=== PATIENT | male | born 1970 | race Caucasian/White ===

== ENCOUNTER 2019-07-10 12:08 | Emergency (ER) | payer OTHER ==
--- OUTSIDE RECORDS SUMMARY | 2019-07-10 12:35 | XMS REPORT | Continuity of Care Document ---
:1970 External Reference #:[id number] Author Name Lucas Rodriguez M.D. 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 108(90Base) Hours as Needed mcg/Act Aerosol For Shortness Of Breath / Wheezing Combivent Respimat 1 puffs four 4gm J44.9 Lucas Rodriguez 04/29/2019 times a day as M., M.D. 20-100mcg/Act needed Aerosol Symbicort inhale one puff 30.6units J44.9 Lucas Rodriguez 04/29/2019 by mouth twice a M., M.D. 80-4.5mcg/Act day Aerosol Levalbuterol A1 puff inhaled 15gm J44.9 Lucas Rodriguez 04/29/2019 Tartrate by mouth every 4 M., M.D. 45mcg/Act hours as needed Aerosol sob or wheezing Azithromycin 1 tab by mouth 10tabs J20.9 Lucas Rodriguez 04/29/2019 500mg every day x 10 M., M.D. Tablets days Ibuprofen 1 by mouth three 90tabs M15.9 [facility] 03/09/2019 800mg times a day as M., M.D. Tablets needed Nortriptyline HCL 1 cap by mouth at 30caps G47.00 [facility] 02/09/2019 bedtime M., M.D. 75mg Capsules Probiotic 1 tab by mouth 3x 30caps [facility] 01/26/2019 Acidophilus daily M., M.D. Capsules Oxycodone HCL 1 tab by mouth 90tabs [facility] 01/14/2019 10mg three times a day M., M.D. Tablets as needed for break through pain 7-9 only. Mucinex 1 tab by mouth 30tabs J18.0 [facility] 01/07/2019 600mg Tablets twice a day M., M.D. ER 12HR Montelukast Sodium 1 by mouth every 90tabs J01.40 [facility] 01/07/2019 day M., M.D. 10mg Tablets Claritin 1 by mouth every 30tabs J01.40 [facility] 11/09/2018 10mg Tablets day M., M.D. Benadryl Allergy 1-2 tab by mouth 60tabs J01.40 [facility] 11/09/2018 25mg every night at M., M.D. Tablets bedtime as needed congestion Atorvastatin Calcium take 1 tablet 90tabs E78.2 [facility] 01/15/2018 every night M., M.D. 40mg Tablets Meloxicam 1 by mouth every 90tabs M25.552 [facility] 10/15/2017 15mg day-WC Case By MYvonne M.D. Tablets Sos Ramipril take one capsule 90caps E11.65 [facility] 08/22/2017 2.5mg by mouth every M., M.D. Capsules day Pioglitazone HCL Take One Tablet 30tabs E11.65 [facility] 12/13/2016 30mg By Mouth Every M., M.D. Tablets Day Glimepiride Take One Tablet 30tabs E11.65 [facility] 12/13/2016 4mg By Mouth Every M., M.D. Tablets Day Freestyle Lite Blood fs [facility] and at 1units E11.65 [facility] 12/11/2016 Glucose Monitoring bedtime as needed M.Melinda System dx: e11.65 Device Freestyle Lancets fs every before 100units E11.65 [facility] 12/11/2016 meals and at M.Raul.D. [facility] [place] needed Freestyle Lite Test test four times a 100units E11.65 [facility] 2016 day before meals M.Melinda Strip and bedtime Aspirin Ec Take One Tablet Unknown 325mg By Mouth Every Tablets DR Day History Medications Keflex 1 by mouth 30caps H70.002 [facility] 04/09/2019 - 500mg Capsules three times a M., M.D. 04/18/2019 day Levofloxacin 1 by mouth 14tabs [facility] 01/26/2019 - 750mg every day M., M.D. 02/08/2019 Tablets Cephalexin 1 tab by mouth 30tabs [facility] 01/26/2019 - 500mg Tablets three times a M., M.D. 02/08/2019 day Amoxicillin/Clavulanat 1 tab by mouth 30tabs J01.40 [facility] 2018 - e Potassium twice a day M., M.D. 01/25/2019 875-125mg Tablets Azithromycin 1 tab by mouth 10tabs J18.0 [facility] 01/07/2019 - 500mg every day x 10 M., M.D. 01/25/2019 Tablets days Medications Administered in Office Medication SIG Qnty Indications Ordering Provider Date Rocephin 250 Lucas Henderson N.P. 01/26/2019 Injection Immunizations CPT Code Status Date Vaccine Lot # [id number] Refused 09/08/2013 Flu Vaccine Vital Signs Date Vital Result Comment 2019 4:08pm BP Systolic 140 mmHg BP Diastolic 70 mmHg Height 72 inches 6'0" Weight 272.00 lb BMI (Body Mass Index) 36.9 kg/m2 Heart Rate 78 /min Respiratory Rate 16 /min 04/29/2019 3:29pm BP Systolic 134 mmHg BP Diastolic 66 mmHg Height 72 inches 6'0" Weight 281.00 lb BMI (Body Mass Index) 38.1 kg/m2 Heart Rate 87 /min Respiratory Rate 16 /min Results Description No Information Available Procedures Date Code Description Status 04/29/2019 43212 Spirometry Completed 03/22/2019 39480 Visual Screening Test Completed 03/22/2019 48497 EKG Completed 03/22/2019 75142 Audiometry, Bekesy, Screening Completed 01/26/2019 31815 Injection DX/Therapeutic/Prophy Completed 01/14/2019 94442 I & D Abscess Simple/Single Incl. Furuncle/Carbuncle/Cyst Completed 01/07/2019 99562 Spirometry Completed 01/07/2019 25957 Tympanometry Completed Medical Devices Description No Information Available Encounters Type Date Location Provider Dx Diagnosis Office Visit 2019 Lucas Johnson, E11.65 Type 2 diabetes 4:15p M.D. mellitus with hyperglycemia M15.9 Polyosteoarthritis, unspecified J44.9 Chronic obstructive pulmonary disease, unspecified E66.01 Morbid (severe) obesity due to excess calories F17.200 Nicotine dependence, unspecified, uncomplicated L20.9 Atopic dermatitis, unspecified J30.9 Allergic rhinitis, unspecified H90.6 Mixed conductive and sensorineural hearing loss, bilateral H53.30 Unspecified disorder of binocular vision E78.2 Mixed hyperlipidemia M25.552 Pain in left hip K86.1 Other chronic pancreatitis Z90.49 Acquired absence of other specified parts of digestive tract E55.9 Vitamin D deficiency, unspecified G47.00 Insomnia, unspecified R06.83 Snoring Office Visit 04/29/2019 3:45p Millie Henderson, E11.65 Type 2 diabetes N.P. mellitus with hyperglycemia M15.9 Polyosteoarthritis, unspecified J44.9 Chronic obstructive pulmonary disease, unspecified E66.01 Morbid (severe) obesity due to excess calories F17.200 Nicotine dependence, unspecified, uncomplicated R06.02 Shortness of breath L20.9 Atopic dermatitis, unspecified J30.9 Allergic rhinitis, unspecified H90.6 Mixed conductive and sensorineural hearing loss, bilateral H53.30 Unspecified disorder of binocular vision E78.2 Mixed hyperlipidemia M25.552 Pain in left hip K86.1 Other chronic pancreatitis Z90.49 Acquired absence of other specified parts of digestive tract E55.9 Vitamin D deficiency, unspecified G47.00 Insomnia, unspecified R06.83 Snoring H70.002 Acute mastoiditis without complications, left ear J20.9 Acute bronchitis, unspecified Office Visit 04/09/2019 4:00p Lucas Johnson, E11.65 Type 2 diabetes mellitus M.D. with hyperglycemia M15.9 Polyosteoarthritis, unspecified J44.9 Chronic obstructive pulmonary disease, unspecified E66.01 Morbid (severe) obesity due to excess calories F17.200 Nicotine dependence, unspecified, uncomplicated L20.9 Atopic dermatitis, unspecified J30.9 Allergic rhinitis, unspecified H90.6 Mixed conductive and sensorineural hearing loss, bilateral H53.30 Unspecified disorder of binocular vision E78.2 Mixed hyperlipidemia M25.552 Pain in left hip K86.1 Other chronic pancreatitis Z90.49 Acquired absence of other specified parts of digestive tract E55.9 Vitamin D deficiency, unspecified G47.00 Insomnia, unspecified R06.83 Snoring H70.002 Acute mastoiditis without complications, left ear Office Visit 03/22/2019 9:00a Lucas Johnson, E11.65 Type 2 diabetes mellitus M.D. with hyperglycemia M15.9 Polyosteoarthritis, unspecified J44.9 Chronic obstructive pulmonary disease, unspecified E66.01 Morbid (severe) obesity due to excess calories F17.200 Nicotine dependence, unspecified, uncomplicated L20.9 Atopic dermatitis, unspecified J30.9 Allergic rhinitis, unspecified H90.6 Mixed conductive and sensorineural hearing loss, bilateral H53.30 Unspecified disorder of binocular vision E78.2 Mixed hyperlipidemia M25.552 Pain in left hip K86.1 Other chronic pancreatitis Z90.49 Acquired absence of other specified parts of digestive tract E55.9 Vitamin D deficiency, unspecified G47.00 Insomnia, unspecified R06.83 Snoring L02.214 Cutaneous abscess of groin Z00.01 Encounter for general adult medical exam w abnormal findings Office Visit 02/09/2019 8:45a Millie Henderson, E11.65 Type 2 diabetes N.P. mellitus with hyperglycemia M15.9 Polyosteoarthritis, unspecified J44.9 Chronic obstructive pulmonary disease, unspecified E66.01 Morbid (severe) obesity due to excess calories F17.200 Nicotine dependence, unspecified, uncomplicated L20.9 Atopic dermatitis, unspecified J30.9 Allergic rhinitis, unspecified H90.6 Mixed conductive and sensorineural hearing loss, bilateral H53.30 Unspecified disorder of binocular vision E78.2 Mixed hyperlipidemia M54.5 Low back pain M25.552 Pain in left hip K86.1 Other chronic pancreatitis Z90.49 Acquired absence of other specified parts of digestive tract J20.9 Acute bronchitis, unspecified J01.40 Acute pansinusitis, unspecified H66.93 Otitis media, unspecified, bilateral R06.02 Shortness of breath R05 Cough R09.81 Nasal congestion E55.9 Vitamin D deficiency, unspecified G47.00 Insomnia, unspecified R06.83 Snoring J02.9 Acute pharyngitis, unspecified J18.0 Bronchopneumonia, unspecified organism L02.214 Cutaneous abscess of groin Office Visit 01/26/2019 1:00p Millie Henderson, E11.65 Type 2 diabetes N.P. mellitus with hyperglycemia M15.9 Polyosteoarthritis, unspecified J44.9 Chronic obstructive pulmonary disease, unspecified E66.01 Morbid (severe) obesity due to excess calories F17.200 Nicotine dependence, unspecified, uncomplicated L20.9 Atopic dermatitis, unspecified J30.9 Allergic rhinitis, unspecified H90.6 Mixed conductive and sensorineural hearing loss, bilateral H53.30 Unspecified disorder of binocular vision E78.2 Mixed hyperlipidemia M54.5 Low back pain M25.552 Pain in left hip K86.1 Other chronic pancreatitis Z90.49 Acquired absence of other specified parts of digestive tract J20.9 Acute bronchitis, unspecified J01.40 Acute pansinusitis, unspecified H66.93 Otitis media, unspecified, bilateral R06.02 Shortness of breath R05 Cough R09.81 Nasal congestion E55.9 Vitamin D deficiency, unspecified G47.00 Insomnia, unspecified R06.83 Snoring J02.9 Acute pharyngitis, unspecified J18.0 Bronchopneumonia, unspecified organism L02.214 Cutaneous abscess of groin Office Visit 01/21/2019 10:00a Millie Lucas Henderson, E11.65 Type 2 diabetes N.P. mellitus with hyperglycemia M15.9 Polyosteoarthritis, unspecified J44.9 Chronic obstructive pulmonary disease, unspecified E66.01 Morbid (severe) obesity due to excess calories F17.200 Nicotine dependence, unspecified, uncomplicated L20.9 Atopic dermatitis, unspecified J30.9 Allergic rhinitis, unspecified H90.6 Mixed conductive and sensorineural hearing loss, bilateral H53.30 Unspecified disorder of binocular vision E78.2 Mixed hyperlipidemia M54.5 Low back pain M25.552 Pain in left hip K86.1 Other chronic pancreatitis Z90.49 Acquired absence of other specified parts of digestive tract J20.9 Acute bronchitis, unspecified J01.40 Acute pansinusitis, unspecified H66.93 Otitis media, unspecified, bilateral R06.02 Shortness of breath R05 Cough R09.81 Nasal congestion E55.9 Vitamin D deficiency, unspecified G47.00 Insomnia, unspecified R06.83 Snoring J02.9 Acute pharyngitis, unspecified J18.0 Bronchopneumonia, unspecified organism L02.214 Cutaneous abscess of groin Office Visit 01/14/2019 8:45a Millie Henderson, E11.65 Type 2 diabetes N.P. mellitus with hyperglycemia M15.9 Polyosteoarthritis, unspecified J44.9 Chronic obstructive pulmonary disease, unspecified E66.01 Morbid (severe) obesity due to excess calories F17.200 Nicotine dependence, unspecified, uncomplicated L20.9 Atopic dermatitis, unspecified J30.9 Allergic rhinitis, unspecified H90.6 Mixed conductive and sensorineural hearing loss, bilateral H53.30 Unspecified disorder of binocular vision E78.2 Mixed hyperlipidemia M54.5 Low back pain M25.552 Pain in left hip K86.1 Other chronic pancreatitis Z90.49 Acquired absence of other specified parts of digestive tract J20.9 Acute bronchitis, unspecified J01.40 Acute pansinusitis, unspecified H66.93 Otitis media, unspecified, bilateral R06.02 Shortness of breath R05 Cough R09.81 Nasal congestion E55.9 Vitamin D deficiency, unspecified G47.00 Insomnia, unspecified R06.83 Snoring J02.9 Acute pharyngitis, unspecified J18.0 Bronchopneumonia, unspecified organism L02.214 Cutaneous abscess of groin Office Visit 01/07/2019 9:30a Millie Zavala Santiago, E11.65 Type 2 diabetes N.P. mellitus with hyperglycemia M15.9 Polyosteoarthritis, unspecified J44.9 Chronic obstructive pulmonary disease, unspecified E66.01 Morbid (severe) obesity due to excess calories F17.200 Nicotine dependence, unspecified, uncomplicated L20.9 Atopic dermatitis, unspecified J30.9 Allergic rhinitis, unspecified H90.6 Mixed conductive and sensorineural hearing loss, bilateral H53.30 Unspecified disorder of binocular vision E78.2 Mixed hyperlipidemia M54.5 Low back pain M25.552 Pain in left hip K86.1 Other chronic pancreatitis Z90.49 Acquired absence of other specified parts of digestive tract J20.9 Acute bronchitis, unspecified J01.40 Acute pansinusitis, unspecified H66.93 Otitis media, unspecified, bilateral R06.02 Shortness of breath R05 Cough R09.81 Nasal congestion E55.9 Vitamin D deficiency, unspecified G47.00 Insomnia, unspecified R06.83 Snoring J02.9 Acute pharyngitis, unspecified J18.0 Bronchopneumonia, unspecified organism Assessments Date Code Description Provider 2019 E11.65 Type 2 diabetes mellitus with hyperglycemia Lucas Rodriguez M.D. 2019 M15.9 Polyosteoarthritis, unspecified Lucas Rodriguez M.D. 2019 J44.9 Chronic obstructive pulmonary disease, Lucas Rodriguez M.D. unspecified 2019 E66.01 Morbid (severe) obesity due to excess Lucas Rodriguez M.D. calories 2019 F17.200 Nicotine dependence, unspecified, Lucas Rodrgiuez M.D. uncomplicated 2019 L20.9 Atopic dermatitis, unspecified Lucas Rodriguez M.D. 2019 J30.9 Allergic rhinitis, unspecified Lucas Rodriguez M.D. 2019 H90.6 Mixed conductive and sensorineural hearing Lucas Rodriguez M.D. loss, bilateral 2019 H53.30 Unspecified disorder of binocular vision Lucas Rodriguez M.D. 2019 E78.2 Mixed hyperlipidemia Lucas Rodriguez M.D. 2019 M25.552 Pain in left hip Lucas Rodriguez M.D. 2019 K86.1 Other chronic pancreatitis Lucas Rodriguez M.D. 2019 Z90.49 Acquired absence of other specified parts of Lucas Rodriguez M.D. digestive tract 2019 E55.9 Vitamin D deficiency, unspecified Lucas Rodriguez M.D. 2019 G47.00 Insomnia, unspecified Lucas Rodriguez M.D. 2019 R06.83 Snoring Lucas Rodriguez M.D. 04/29/2019 E11.65 Type 2 diabetes mellitus with hyperglycemia Lucas Henderson N.PYvonne 04/29/2019 M15.9 Polyosteoarthritis, unspecified Lucas Henderson N.P. 04/29/2019 J44.9 Chronic obstructive pulmonary disease, Lucas Henderson N.P. unspecified 04/29/2019 E66.01 Morbid (severe) obesity due to excess Lucas Henderson N.P. calories 04/29/2019 F17.200 Nicotine dependence, unspecified, Lucas Henderson N.P. uncomplicated 04/29/2019 R06.02 Shortness of breath Lucas Henderson N.P. 04/29/2019 L20.9 Atopic dermatitis, unspecified Lucas Henderson N.P. 04/29/2019 J30.9 Allergic rhinitis, unspecified Lucas Henderson N.P. 04/29/2019 H90.6 Mixed conductive and sensorineural hearing Lucas Henderson N.PYvonne loss, bilateral 04/29/2019 H53.30 Unspecified disorder of binocular vision Lucas Henderson N.P. 04/29/2019 E78.2 Mixed hyperlipidemia Lucas Henderson N.P. 04/29/2019 M25.552 Pain in left hip Lucas Henderson N.PYvonne 04/29/2019 K86.1 Other chronic pancreatitis Lucas Henderson, N.P. 04/29/2019 Z90.49 Acquired absence of other specified parts of Lucas Henderson N.PYvonne digestive tract 04/29/2019 E55.9 Vitamin D deficiency, unspecified Lucas Henderson N.P. 04/29/2019 G47.00 Insomnia, unspecified Lucas Henderson N.PYvonne 04/29/2019 R06.83 Snoring Lucas Henderson N.P. 04/29/2019 H70.002 Acute mastoiditis without complications, Lucas Henderson N.PYvonne left ear 04/29/2019 J20.9 Acute bronchitis, unspecified Lucas Henderson N.P. 04/09/2019 E11.65 Type 2 diabetes mellitus with hyperglycemia Lucas Rodriguez M.D. 04/09/2019 M15.9 Polyosteoarthritis, unspecified Lucas Rodriguez M.D. 04/09/2019 J44.9 Chronic obstructive pulmonary disease, Lucas Rodriguez M.D. unspecified 04/09/2019 E66.01 Morbid (severe) obesity due to excess Lucas Rodriguez M.D. calories 04/09/2019 F17.200 Nicotine dependence, unspecified, Lucas Rodriguez M.D. uncomplicated 04/09/2019 L20.9 Atopic dermatitis, unspecified Lucas Rodriguez M.D. 04/09/2019 J30.9 Allergic rhinitis, unspecified Lucas Rodriguez M.D. 04/09/2019 H90.6 Mixed conductive and sensorineural hearing Lucas Rodriguez M.D. loss, bilateral 04/09/2019 H53.30 Unspecified disorder of binocular vision Lucas Rodriguez M.D. 04/09/2019 E78.2 Mixed hyperlipidemia Lucas Rodriguez M.D. 04/09/2019 M25.552 Pain in left hip Lucas Rodriguez M.D. 04/09/2019 K86.1 Other chronic pancreatitis Lucas Rodriguez M.D. 04/09/2019 Z90.49 Acquired absence of other specified parts of Lucas Rodriguez M.D. digestive tract 04/09/2019 E55.9 Vitamin D deficiency, unspecified Lucas Rodriguez M.D. 04/09/2019 G47.00 Insomnia, unspecified Lucas Rodriguez M.D. 04/09/2019 R06.83 Snoring Lucas Rodriguez M.D. 04/09/2019 H70.002 Acute mastoiditis without complications, Lucas Rodriguez M.D. left ear 03/22/2019 E11.65 Type 2 diabetes mellitus with hyperglycemia Lucas Rodriguez M.D. 03/22/2019 M15.9 Polyosteoarthritis, unspecified Lucas Rodriguez M.D. 03/22/2019 J44.9 Chronic obstructive pulmonary disease, Lucas Rodriguez M.D. unspecified 03/22/2019 E66.01 Morbid (severe) obesity due to excess Lucas Rodriguez M.D. calories 03/22/2019 F17.200 Nicotine dependence, unspecified, Lucas Rodriguez M.D. uncomplicated 03/22/2019 L20.9 Atopic dermatitis, unspecified Lucas Rodriguez M.D. 03/22/2019 J30.9 Allergic rhinitis, unspecified Lucas Rodriguez M.D. 03/22/2019 H90.6 Mixed conductive and sensorineural hearing Lucas Rodriguez M.D. loss, bilateral 03/22/2019 H53.30 Unspecified disorder of binocular vision Lucas Rodriguez M.D. 03/22/2019 E78.2 Mixed hyperlipidemia Lucas Rodriguez M.D. 03/22/2019 M25.552 Pain in left hip Lucas Rodriguez M.D. 03/22/2019 K86.1 Other chronic pancreatitis Lucas Rodriguez M.D. 03/22/2019 Z90.49 Acquired absence of other specified parts of Lucas Rodriguez M.D. digestive tract 03/22/2019 E55.9 Vitamin D deficiency, unspecified Lucas Rodriguez M.D. 03/22/2019 G47.00 Insomnia, unspecified Lucas Rodriguez M.D. 03/22/2019 R06.83 Snoring Lucas Rodriguez M.D. 03/22/2019 L02.214 Cutaneous abscess of groin Lucas Rodriguez M.D. 03/22/2019 Z00.01 Encounter for general adult medical Lucas Rodriguez M.D. examination with abnorma 02/09/2019 E11.65 Type 2 diabetes mellitus with hyperglycemia Lucas Henderson N.PYvonne 02/09/2019 M15.9 Polyosteoarthritis, unspecified Luacs Henderson N.P. 02/09/2019 J44.9 Chronic obstructive pulmonary disease, Lucas Henderson N.P. unspecified 02/09/2019 E66.01 Morbid (severe) obesity due to excess Lucas Henderson, N.P. calories 02/09/2019 F17.200 Nicotine dependence, unspecified, Lucas Henderson N.P. uncomplicated 02/09/2019 L20.9 Atopic dermatitis, unspecified Lucas Henderson N.P. 02/09/2019 J30.9 Allergic rhinitis, unspecified Lucas Henderson N.P. 02/09/2019 H90.6 Mixed conductive and sensorineural hearing Lucas Henderson N.P. loss, bilateral 02/09/2019 H53.30 Unspecified disorder of binocular vision Lucas Henderson N.P. 02/09/2019 E78.2 Mixed hyperlipidemia Lucas Henderson N.P. 02/09/2019 M54.5 Low back pain Lucas Henderson N.P. 02/09/2019 M25.552 Pain in left hip Lucas Henderson N.P. 02/09/2019 K86.1 Other chronic pancreatitis Lucas Henderson N.P. 02/09/2019 Z90.49 Acquired absence of other specified parts of Lucas Henderson N.PYvonne digestive tract 02/09/2019 J20.9 Acute bronchitis, unspecified Lucas Henderson N.P. 02/09/2019 J01.40 Acute pansinusitis, unspecified Lucas Henderson, N.P. 02/09/2019 H66.93 Otitis media, unspecified, bilateral Lucas Henderson, N.P. 02/09/2019 R06.02 Shortness of breath Lucas Henderson, N.P. 02/09/2019 R05 Cough Lucas Henderson, N.P. 02/09/2019 R09.81 Nasal congestion Lucas Henderson, N.P. 02/09/2019 E55.9 Vitamin D deficiency, unspecified Lucas Henderson, N.P. 02/09/2019 G47.00 Insomnia, unspecified Lucas Henderson, N.P. 02/09/2019 R06.83 Snoring Lucas Henderson, N.P. 02/09/2019 J02.9 Acute pharyngitis, unspecified Lucas Henderson, N.P. 02/09/2019 J18.0 Bronchopneumonia, unspecified organism Lucas Henderson N.P. 02/09/2019 L02.214 Cutaneous abscess of groin Lucas Henderson, N.P. 01/26/2019 E11.65 Type 2 diabetes mellitus with hyperglycemia Lucas Henderson , N.P. 01/26/2019 M15.9 Polyosteoarthritis, unspecified Lucas Henderson, N.P. 01/26/2019 J44.9 Chronic obstructive pulmonary disease, Lucas Henderson, N.P. unspecified 01/26/2019 E66.01 Morbid (severe) obesity due to excess Lucas Henderson, N.P. calories 01/26/2019 F17.200 Nicotine dependence, unspecified, Lucas Henderson, N.P. uncomplicated 01/26/2019 L20.9 Atopic dermatitis, unspecified Lucas Henderson, N.P. 01/26/2019 J30.9 Allergic rhinitis, unspecified Lucas Henderson, N.P. 01/26/2019 H90.6 Mixed conductive and sensorineural hearing Lucas Henderson, N.P. loss, bilateral 01/26/2019 H53.30 Unspecified disorder of binocular vision Lucas Henderson, N.P. 01/26/2019 E78.2 Mixed hyperlipidemia Lucas Henderson N.P. 01/26/2019 M54.5 Low back pain Lucas Henderson N.P. 01/26/2019 M25.552 Pain in left hip Lucas Henderson N.P. 01/26/2019 K86.1 Other chronic pancreatitis Lucas Henderson, N.P. 01/26/2019 Z90.49 Acquired absence of other specified parts of Lucas Henderson , N.P. digestive tract 01/26/2019 J20.9 Acute bronchitis, unspecified Lucas Henderson, N.P. 01/26/2019 J01.40 Acute pansinusitis, unspecified Lucas Henderson, N.P. 01/26/2019 H66.93 Otitis media, unspecified, bilateral Lucas Henderson, N.P. 01/26/2019 R06.02 Shortness of breath Lucas Henderson, N.P. 01/26/2019 R05 Cough Lucas Henderson, N.P. 01/26/2019 R09.81 Nasal congestion Lucas Henderson, N.P. 01/26/2019 E55.9 Vitamin D deficiency, unspecified Lucas Henderson, N.P. 01/26/2019 G47.00 Insomnia, unspecified Lucas Henderson, N.P. 01/26/2019 R06.83 Snoring Lucas Henderson, N.P. 01/26/2019 J02.9 Acute pharyngitis, unspecified Lucas Henderson, N.P. 01/26/2019 J18.0 Bronchopneumonia, unspecified organism Lucas Henderson, N.P. 01/26/2019 L02.214 Cutaneous abscess of groin Lucas Henderson, N.P. 01/21/2019 E11.65 Type 2 diabetes mellitus with hyperglycemia Lucas Henderson , N.P. 01/21/2019 M15.9 Polyosteoarthritis, unspecified Lucas Henderson, N.P. 01/21/2019 J44.9 Chronic obstructive pulmonary disease, Lucas Henderson, N.P. unspecified 01/21/2019 E66.01 Morbid (severe) obesity due to excess Lucas Henderson, N.P. calories 01/21/2019 F17.200 Nicotine dependence, unspecified, Lucas Henderson, N.P. uncomplicated 01/21/2019 L20.9 Atopic dermatitis, unspecified Lucas Henderson, N.P. 01/21/2019 J30.9 Allergic rhinitis, unspecified Lucas Henderson, N.P. 01/21/2019 H90.6 Mixed conductive and sensorineural hearing Lucas Henderson, N.P. loss, bilateral 01/21/2019 H53.30 Unspecified disorder of binocular vision Lucas Henderson, N.P. 01/21/2019 E78.2 Mixed hyperlipidemia Lucas Henderson, N.P. 01/21/2019 M54.5 Low back pain Lucas Henderson N.P. 01/21/2019 M25.552 Pain in left hip Lucas Henderson N.P. 01/21/2019 K86.1 Other chronic pancreatitis Lucas Henderson N.P. 01/21/2019 Z90.49 Acquired absence of other specified parts of Lucas Henderson N.PYvonne digestive tract 01/21/2019 J20.9 Acute bronchitis, unspecified Lucas Henderson, N.P. 01/21/2019 J01.40 Acute pansinusitis, unspecified Lucas Henderson, N.P. 01/21/2019 H66.93 Otitis media, unspecified, bilateral Lucas Henderson N.P. 01/21/2019 R06.02 Shortness of breath Lucas Henderson N.P. 01/21/2019 R05 Cough Lucas Henderson N.P. 01/21/2019 R09.81 Nasal congestion Lucas Henderson N.P. 01/21/2019 E55.9 Vitamin D deficiency, unspecified Lucas Henderson, N.P. 01/21/2019 G47.00 Insomnia, unspecified Lucas Henderson, N.P. 01/21/2019 R06.83 Snoring Lucas Henderson N.P. 01/21/2019 J02.9 Acute pharyngitis, unspecified Lucas Henderson, N.P. 01/21/2019 J18.0 Bronchopneumonia, unspecified organism Lucas Henderson N.P. 01/21/2019 L02.214 Cutaneous abscess of groin Lucas Henderson N.P. 01/14/2019 E11.65 Type 2 diabetes mellitus with hyperglycemia Lucas Henderson N.P. 01/14/2019 M15.9 Polyosteoarthritis, unspecified Lucas Henderson, N.P. 01/14/2019 J44.9 Chronic obstructive pulmonary disease, Lucas Henderson, N.P. unspecified 01/14/2019 E66.01 Morbid (severe) obesity due to excess Lucas Henderson, N.P. calories 01/14/2019 F17.200 Nicotine dependence, unspecified, Lucas Henderson N.P. uncomplicated 01/14/2019 L20.9 Atopic dermatitis, unspecified Lucas Henderson N.P. 01/14/2019 J30.9 Allergic rhinitis, unspecified Lucas Henderson, N.P. 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 loss, bilateral 01/14/2019 H53.30 Unspecified disorder of binocular vision Lucas Henderson, N.P. 01/14/2019 E78.2 Mixed hyperlipidemia Lucas Henderson, N.P. 01/14/2019 M54.5 Low back pain Lucas Henderson, N.P. 01/14/2019 M25.552 Pain in left hip Lucas Henderson, N.P. 01/14/2019 K86.1 Other chronic pancreatitis Lucas Hnederson, N.P. 01/14/2019 Z90.49 Acquired absence of other specified parts of Lucas Henderson , N.PYvonne digestive tract 01/14/2019 J20.9 Acute bronchitis, unspecified Lucas Henderson, N.P. 01/14/2019 J01.40 Acute pansinusitis, unspecified Lucas Henderson, N.P. 01/14/2019 H66.93 Otitis media, unspecified, bilateral Lucas Henderson, N.P. 01/14/2019 R06.02 Shortness of breath Lucas Henderson, N.P. 01/14/2019 R05 Cough Lucas Henderson, N.P. 01/14/2019 R09.81 Nasal congestion Lucas Henderson, N.P. 01/14/2019 E55.9 Vitamin D deficiency, unspecified Lucas Henderson, N.P. 01/14/2019 G47.00 Insomnia, unspecified Lucas Henderson, N.P. 01/14/2019 R06.83 Snoring Lucas Henderson N.P. 01/14/2019 J02.9 Acute pharyngitis, unspecified Lucas Henderson, N.P. 01/14/2019 J18.0 Bronchopneumonia, unspecified organism Lucas Henderson, N.P. 01/14/2019 L02.214 Cutaneous abscess of groin Lucas Henderson, N.P. 01/07/2019 E11.65 Type 2 diabetes mellitus with hyperglycemia Lucas Henderson , N.P. 01/07/2019 M15.9 Polyosteoarthritis, unspecified Lucas Henderson, N.P. 01/07/2019 J44.9 Chronic obstructive pulmonary disease, Lucas Henderson, N.P. unspecified 01/07/2019 E66.01 Morbid (severe) obesity due to excess Lucas Henderson, N.P. calories 01/07/2019 F17.200 Nicotine dependence, unspecified, Lucas Henderson, N.P. uncomplicated 01/07/2019 L20.9 Atopic dermatitis, unspecified Lucas Henderson, N.P. 01/07/2019 J30.9 Allergic rhinitis, unspecified Lucas Henderson, N.P. 01/07/2019 H90.6 Mixed conductive and sensorineural hearing Lucas Henderson N.P. loss, bilateral 01/07/2019 H53.30 Unspecified disorder of binocular vision Lucas Henderson, N.P. 01/07/2019 E78.2 Mixed hyperlipidemia Lucas Henderson, N.P. 01/07/2019 M54.5 Low back pain Lucas Henderson N.P. 01/07/2019 M25.552 Pain in left hip Lucas Henderson, N.P. 01/07/2019 K86.1 Other chronic pancreatitis Lucas Henderson N.P. 01/07/2019 Z90.49 Acquired absence of other specified parts of Lucas Henderson N.PYvonne digestive tract 01/07/2019 J20.9 Acute bronchitis, unspecified Lucas Henderson, N.P. 01/07/2019 J01.40 Acute pansinusitis, unspecified Lucas Henderson, N.P. 01/07/2019 H66.93 Otitis media, unspecified, bilateral Lucas Henderson, N.P. 01/07/2019 R06.02 Shortness of breath Lucas Henderson, N.P. 01/07/2019 R05 Cough Lucas Henderson, N.P. 01/07/2019 R09.81 Nasal congestion Lucas Henderson N.P. 01/07/2019 E55.9 Vitamin D deficiency, unspecified Lucas Henderson, N.P. 01/07/2019 G47.00 Insomnia, unspecified Lucas Henderson, N.P. 01/07/2019 R06.83 Snoring Lucas Henderson N.P. 01/07/2019 J02.9 Acute pharyngitis, unspecified Lucas Henderson, N.P. 01/07/2019 J18.0 Bronchopneumonia, unspecified organism Lucas Henderson, N.P. Plan of Treatment No Information Available Functional Status Description No Information Available Mental Status Description No Information Available Referrals Refer to Dr Reason for Referral Status Appt Date Asa Nye MD Closed 02/16/[address] [place] [id number] [facility] [phone]
--- OUTSIDE RECORDS SUMMARY | 2019-07-10 12:35 | XMS REPORT | Continuity of Care Document ---
:1970 External Reference #:[id number] Author Name Lucas Henderson N.P. Address [address] [place] [address] [address] [place] [address] Problems Active Problems Provider Date Neck pain Gary Barreto DISPATCH OFFICER Onset: 09/08/2013 Social History Type Date Description [...] Medications SIG Qnty Indications Ordering Date Provider Knee Brace On 12H Off 12H 1units M25.561 MichaelLucas redman 06/29/2019 Adjustable M., M.D. Hinged/Maximum Support Misc Albuterol Sulfate Inhale 2 Puffs By 8.5units J44.9 [facility] HFA Mouth Every 4 M., M.DYvonne 108(90Base) Hours as Needed mcg/Act Aerosol For Shortness Of Breath / Wheezing Combivent Respimat 1 puffs four 4gm J44.9 MichaelLucas redman 04/29/2019 times a day as M. MYvonneDYvonne 20-100mcg/Act needed Aerosol Symbicort inhale one puff 30.6units J44.9 Michael, eileen 04/29/2019 by mouth twice a M., MYvonneDYvonne 80-4.5mcg/Act day Aerosol Levalbuterol A1 puff inhaled 15gm J44.9 [facility] 04/[facility]2019 Tartrate by mouth every 4 M., MYvonneD. 45mcg/Act hours as needed Aerosol sob or wheezing Ibuprofen 1 by mouth three 90tabs M15.9 [facility] 03/09/2019 800mg times a day as M., M.D. Tablets needed Probiotic 1 tab by mouth 3x 30caps [facility], [facility] 01/26/2019 Acidophilus daily M., M.D. Capsules Montelukast Sodium 1 by mouth every 90tabs J01.40 [facility] 01/07/2019 day M., M.D. 10mg Tablets Claritin 1 by mouth every 30tabs J01.40 [facility] 11/09/2018 10mg Tablets day M., M.D. Benadryl Allergy 1-2 tab by mouth 60tabs J01.40 [facility], [facility] 11/09/2018 25mg every night at M., M.D. Tablets bedtime as needed congestion Atorvastatin Calcium take 1 tablet 90tabs E78.2 [facility], [facility] 01/15/2018 every night M., M.D. 40mg Tablets Ramipril take one capsule 90caps E11.65 [facility], [facility] 08/22/2017 2.5mg by mouth every M., M.D. Capsules day Glimepiride Take One Tablet 30tabs E11.65 [facility], [facility] 12/13/2016 4mg By Mouth Every M., M.D. Tablets Day Pioglitazone HCL Take One Tablet 30tabs E11.65 [facility] 12/13/2016 30mg By Mouth Every M., M.D. Tablets Day Freestyle Lite Blood fs [facility] and at 1units E11.65 [facility] 12/11/2016 Glucose Monitoring bedtime as needed M., M.D. System dx: e11.65 Device Freestyle Lancets fs every before 100units E11.65 [facility], [facility] 12/11/2016 meals and at M., M.D. [facility] bedtime as needed Freestyle Lite Test test four times a 100units E11.65 [facility], [facility] 2016 day before meals M. MYvonneDYvonne Strip and bedtime Aspirin Ec Take One Tablet Unknown 325mg By Mouth Every Tablets DR Day History Medications Azithromycin 1 tab by mouth 10tabs J20.9 [facility] 04/29/2019 - 500mg every day x 10 M., M.D. 06/28/2019 Tablets days Keflex 1 by mouth three 30caps H70.002 [facility] 04/09/2019 - 500mg Capsules times a day M., M.D. 04/18/2019 Nortriptyline HCL 1 cap by mouth 30caps G47.00 [facility] 02/09/2019 - 75mg at bedtime M., M.D. 06/28/2019 Capsules Levofloxacin 1 by mouth every 14tabs [facility] 01/26/2019 - 750mg day M., M.D. 02/08/2019 Tablets Cephalexin 1 tab by mouth 30tabs [facility] 01/26/2019 - 500mg Tablets three times a M., M.D. 02/08/2019 day Oxycodone HCL 1 tab by mouth 90tabs [facility] 01/14/2019 - 10mg three times a M., M.D. 06/28/2019 Tablets day as needed for break through pain 7-9 only. Amoxicillin/Clavulanat 1 tab by mouth 30tabs J01.40 [facility] 2018 - e Potassium twice a day M., M.D. 01/25/2019 875-125mg Tablets Azithromycin 1 tab by mouth 10tabs J18.0 [facility] 01/07/2019 - 500mg every day x 10 M., M.D. 01/25/2019 Tablets days Mucinex 1 tab by mouth 30tabs J18.0 [facility] 01/07/2019 - 600mg Tablets ER twice a day M., M.D. 06/28/2019 12HR Medications Administered in Office Medication SIG Qnty Indications Ordering Provider Date Javier Henderson N.P. 01/26/2019 Injection Immunizations CPT Code Status Date Vaccine Lot # [id number] Refused 09/08/2013 Flu Vaccine Vital Signs Date Vital Result Comment 06/29/2019 3:28pm BP Systolic 142 mmHg BP Diastolic 70 mmHg Height 72 inches 6'0" Weight 275.00 lb BMI (Body Mass Index) 37.3 kg/m2 Heart Rate 91 /min Respiratory Rate 16 /min 2019 4:08pm BP Systolic 140 mmHg BP Diastolic 70 mmHg Height 72 inches 6'0" Weight 272.00 lb BMI (Body Mass Index) 36.9 kg/m2 Heart Rate 78 /min Respiratory Rate 16 /min Results Description No Information Available Procedures Date Code Description Status 04/29/2019 42325 Spirometry Completed 03/22/2019 73399 Visual Screening Test Completed 03/22/2019 31489 EKG Completed 03/22/2019 74463 Audiometry, Bekesy, Screening Completed 01/26/2019 24843 Injection DX/Therapeutic/Prophy Completed 01/14/2019 85228 I & D Abscess Simple/Single Incl. Furuncle/Carbuncle/Cyst Completed 01/07/2019 16773 Spirometry Completed 01/07/2019 47000 Tympanometry Completed Medical Devices Description No Information Available Encounters Type Date Location Provider Dx Diagnosis Office Visit 06/29/2019 Millie Henderson, E11.65 Type 2 diabetes 4:15p N.P. mellitus with hyperglycemia M15.9 Polyosteoarthritis, unspecified [...] deficiency, unspecified G47.00 Insomnia, unspecified R06.83 Snoring M25.561 Pain in right knee Office Visit 2019 4:15p Lucas Johnson, E11.65 Type 2 diabetes mellitus [...] complications, left ear Office Visit 03/22/2019 9:00a Millie Michael, Ahmad M., E11.65 Type 2 diabetes mellitus M.D. with [...] of groin Office Visit 01/21/2019 10:00a Millie Henderson, E11.65 Type 2 diabetes N.P. [...] of groin Office Visit 01/07/2019 9:30a Millie Henderson, E11.65 Type 2 diabetes N.P. [...] unspecified organism Assessments Date Code Description Provider 06/29/2019 E11.65 Type 2 diabetes mellitus with hyperglycemia Lucas Henderson N.P. 06/29/2019 M15.9 Polyosteoarthritis, unspecified Lucas Henderson N.P. 06/29/2019 J44.9 Chronic obstructive pulmonary disease, Lucas Henderson N.P. unspecified 06/29/2019 E66.01 Morbid (severe) obesity due to excess Lucas Henderson, N.P. calories 06/29/2019 F17.200 Nicotine dependence, unspecified, Lucas Henderson, N.P. uncomplicated 06/29/2019 L20.9 Atopic dermatitis, unspecified Lucas Henderson, N.P. 06/29/2019 J30.9 Allergic rhinitis, unspecified Lucas Henderson N.P. 06/29/2019 H90.6 Mixed conductive and sensorineural hearing Lucas Henderson N.PYvonne loss, bilateral 06/29/2019 H53.30 Unspecified disorder of binocular vision Lucas Henderson N.P. 06/29/2019 E78.2 Mixed hyperlipidemia Lucas Henderson N.P. 06/29/2019 M25.552 Pain in left hip Lucas Henderson N.P. 06/29/2019 K86.1 Other chronic pancreatitis Lucas Henderson N.P. 06/29/2019 Z90.49 Acquired absence of other specified parts of Lucas Henderson N.PYvonne digestive tract 06/29/2019 E55.9 Vitamin D deficiency, unspecified Lucas Henderson, N.P. 06/29/2019 G47.00 Insomnia, unspecified Lucas Henderson N.P. 06/29/2019 R06.83 Snoring Lucas Henderson N.P. 06/29/2019 M25.561 Pain in right knee Lucas Henderson N.P. 2019 E11.65 Type 2 diabetes mellitus with hyperglycemia Lucas Rodriguez M.D. 2019 M15.9 Polyosteoarthritis, unspecified Lucas Rodriguez M.D. 2019 J44.9 Chronic obstructive pulmonary disease, Lucas Rodriguez M.D. unspecified 2019 E66.01 Morbid (severe) obesity due to excess Lucas Rodriguez M.D. calories 2019 F17.200 Nicotine dependence, unspecified, Lucas Rodriguez M.D. uncomplicated 2019 L20.9 Atopic dermatitis, unspecified [...] N.PYvonne 04/29/2019 M15.9 Polyosteoarthritis, unspecified Lucas Henderson N.PYvonne 04/29/2019 J44.9 Chronic obstructive pulmonary disease, Lucas Henderson N.PYvonne unspecified 04/29/2019 E66.01 Morbid (severe) obesity due to excess Lucas Henderson N.PYvonne calories 04/29/2019 F17.200 Nicotine dependence, unspecified, Lucas Henderson N.PYvonne uncomplicated 04/29/2019 R06.02 Shortness of breath Lucas Henderson N.PYvonne 04/29/2019 L20.9 Atopic dermatitis, unspecified Lucas Henderson N.PYvonne 04/29/2019 J30.9 Allergic rhinitis, unspecified Lucas Henderson N.PYvonne 04/29/2019 H90.6 Mixed conductive and sensorineural hearing Lucas Henderson N.P. loss, bilateral 04/29/2019 H53.30 Unspecified disorder of binocular vision Lucas Henderson, N.P. 04/29/2019 E78.2 Mixed hyperlipidemia Lucas Henderson, N.P. 04/29/2019 M25.552 Pain in left hip Lucas Henderson N.P. 04/29/2019 K86.1 Other chronic pancreatitis Lucas Henderson, N.P. 04/29/2019 Z90.49 Acquired absence of other specified parts of Lucas Henderson , N.PYvonne digestive tract 04/29/2019 E55.9 Vitamin D deficiency, unspecified Lucas Henderson, N.P. 04/29/2019 G47.00 Insomnia, unspecified Lucas Henderson N.P. 04/29/2019 R06.83 Snoring Lucas Henderson N.P. 04/29/2019 H70.002 Acute mastoiditis without complications, Lucas Henderson N.P. left ear 04/29/2019 J20.9 Acute bronchitis, unspecified [...] Lucas Henderson N.PYvonne 02/09/2019 M15.9 Polyosteoarthritis, unspecified Lucas Henderson N.PYvonne 02/09/2019 J44.9 Chronic obstructive pulmonary disease, Lucas Henderson N.P. unspecified 02/09/2019 E66.01 Morbid (severe) obesity due to excess Lucas Henderson N.PYvonne calories 02/09/2019 F17.200 Nicotine dependence, unspecified, Lucas Henderson N.P. uncomplicated 02/09/2019 L20.9 Atopic dermatitis, unspecified Lucas Henderson N.P. 02/09/2019 J30.9 Allergic rhinitis, unspecified Lucas Henderson N.PYvonne 02/09/2019 H90.6 Mixed conductive and sensorineural hearing Lucas Henderson N.P. loss, bilateral 02/09/2019 H53.30 Unspecified disorder of binocular vision Lucas Henderson N.P. 02/09/2019 E78.2 Mixed hyperlipidemia Lucas Henderson N.P. 02/09/2019 M54.5 Low back pain Lucas Henderson N.PYvonne 02/09/2019 M25.552 Pain in left hip Lucas Henderson, N.P. 02/09/2019 K86.1 Other chronic pancreatitis Lucas Henderson, N.P. 02/09/2019 Z90.49 Acquired absence of other specified parts of Lucas Henderson , N.PYvonne digestive tract 02/09/2019 J20.9 Acute bronchitis, unspecified Lucas Henderson, N.P. 02/09/2019 J01.40 Acute pansinusitis, unspecified Lucas Henderson, N.P. 02/09/2019 H66.93 Otitis media, unspecified, bilateral Lucas Henderson, N.P. 02/09/2019 R06.02 Shortness of breath Lucas Henderson, N.P. 02/09/2019 R05 Cough Lucas Henderson, N.P. 02/09/2019 R09.81 Nasal congestion Lucas Henderson, N.P. 02/09/2019 E55.9 Vitamin D deficiency, unspecified Lucas Henderson, N.P. 02/09/2019 G47.00 Insomnia, unspecified Lucas Henderson N.P. 02/09/2019 R06.83 Snoring Lucas Henderson N.P. 02/09/2019 J02.9 Acute pharyngitis, unspecified Lucas Henderson, N.P. 02/09/2019 J18.0 Bronchopneumonia, unspecified organism Lucas Henderson N.P. 02/09/2019 L02.214 Cutaneous abscess of groin Lucas Henderson, N.P. 01/26/2019 E11.65 Type 2 diabetes mellitus with hyperglycemia Lucas Henderson N.P. 01/26/2019 M15.9 Polyosteoarthritis, unspecified Lucas Henderson N.P. 01/26/2019 J44.9 Chronic obstructive pulmonary disease, Lucas Henderson, N.P. unspecified 01/26/2019 E66.01 Morbid (severe) obesity due to excess Lucas Henderson, N.P. calories 01/26/2019 F17.200 Nicotine dependence, unspecified, Lucas Henderson, N.P. uncomplicated 01/26/2019 L20.9 Atopic dermatitis, unspecified Lucas Henderson, N.P. 01/26/2019 J30.9 Allergic rhinitis, unspecified Lucas Henderson N.P. 01/26/2019 H90.6 Mixed conductive and sensorineural hearing Luacs Henderson N.P. loss, bilateral 01/26/2019 H53.30 Unspecified disorder of binocular vision Lucas Henderson, N.P. 01/26/2019 E78.2 Mixed hyperlipidemia Lucas Henderson, N.P. 01/26/2019 M54.5 Low back pain Lucas Henderson, N.P. 01/26/2019 M25.552 Pain in left hip Lucas Henderson, N.P. 01/26/2019 K86.1 Other chronic pancreatitis Lucas Henderson, N.P. 01/26/2019 Z90.49 Acquired absence of other specified parts of Lucas Henderson , N.P. digestive tract 01/26/2019 J20.9 Acute bronchitis, unspecified Lucas Henderson, N.P. 01/26/2019 J01.40 Acute pansinusitis, unspecified Lucas Henderson, N.P. 01/26/2019 H66.93 Otitis media, unspecified, bilateral Lucas Henderson, N.P. 01/26/2019 R06.02 Shortness of breath Lucas Henderson N.P. 01/26/2019 R05 Cough Lucas Henderson N.P. 01/26/2019 R09.81 Nasal congestion Lucas Henderson, N.P. 01/26/2019 E55.9 Vitamin D deficiency, unspecified Lucas Henderson, N.P. 01/26/2019 G47.00 Insomnia, unspecified Lucas Henderson, N.P. 01/26/2019 R06.83 Snoring Lucas Henderson, N.P. 01/26/2019 J02.9 Acute pharyngitis, unspecified Lucas Henderson, N.P. 01/26/2019 J18.0 Bronchopneumonia, unspecified organism Lucas Henderson N.P. 01/26/2019 L02.214 Cutaneous abscess of groin Lucas Henderson, N.P. 01/21/2019 E11.65 Type 2 diabetes mellitus with hyperglycemia Lucas Henderson , N.P. 01/21/2019 M15.9 Polyosteoarthritis, unspecified Lucas Henderson, N.P. 01/21/2019 J44.9 Chronic obstructive pulmonary disease, Lucas Henderson, N.P. unspecified 01/21/2019 E66.01 Morbid (severe) obesity due to excess Lucas Henderson, N.P. calories 01/21/2019 F17.200 Nicotine dependence, unspecified, Lucas Henderson N.P. uncomplicated 01/21/2019 L20.9 Atopic dermatitis, unspecified Lucas Henderson, N.P. 01/21/2019 J30.9 Allergic rhinitis, unspecified Lucas Henderson N.P. 01/21/2019 H90.6 Mixed conductive and sensorineural hearing Julianna Lind.Carissa loss, bilateral 01/21/2019 H53.30 Unspecified disorder of binocular vision Lucas Henderson, N.P. 01/21/2019 E78.2 Mixed hyperlipidemia Lucas Henderson N.P. 01/21/2019 M54.5 Low back pain Lucas Henderson N.P. 01/21/2019 M25.552 Pain in left hip Lucas Henderson N.P. 01/21/2019 K86.1 Other chronic pancreatitis Lucas Henderson N.P. 01/21/2019 Z90.49 Acquired absence of other specified parts of Lucas Henderson N.PYvonne digestive tract 01/21/2019 J20.9 Acute bronchitis, unspecified Lucas Henderson N.P. 01/21/2019 J01.40 Acute pansinusitis, unspecified Lucas Henderson N.P. 01/21/2019 H66.93 Otitis media, unspecified, bilateral Lucas Henderson N.P. 01/21/2019 R06.02 Shortness of breath Lucas Henderson N.P. 01/21/2019 R05 Cough Lucas Henderson N.P. 01/21/2019 R09.81 Nasal congestion Lucas Henderson N.P. 01/21/2019 E55.9 Vitamin D deficiency, unspecified Lucas Henderson N.P. 01/21/2019 G47.00 Insomnia, unspecified Lucas Henderson N.P. 01/21/2019 R06.83 Snoring Lucas Henderson N.P. 01/21/2019 J02.9 Acute pharyngitis, unspecified Lucas Hednerson N.P. 01/21/2019 J18.0 Bronchopneumonia, unspecified organism Lucas Henderson N.P. 01/21/2019 L02.214 Cutaneous abscess of groin Lucas Henderson N.P. 01/14/2019 E11.65 Type 2 diabetes mellitus with hyperglycemia Lucas Henderson N.P. 01/14/2019 M15.9 Polyosteoarthritis, unspecified Lucas Henderson N.P. 01/14/2019 J44.9 Chronic obstructive pulmonary disease, Lucas Henderson N.P. unspecified 01/14/2019 E66.01 Morbid (severe) obesity due to excess Lucas Henderson, N.P. calories 01/14/2019 F17.200 Nicotine dependence, unspecified, Lucas Henderson N.P. uncomplicated 01/14/2019 L20.9 Atopic dermatitis, unspecified Lucas Henderson, N.P. 01/14/2019 J30.9 Allergic rhinitis, unspecified Lucas Henderson, N.P. 01/14/2019 H90.6 Mixed conductive and sensorineural hearing Lucas Henderson N.P. loss, bilateral 01/14/2019 H53.30 Unspecified disorder of binocular vision Lucas Henderson, N.P. 01/14/2019 E78.2 Mixed hyperlipidemia Lucas Henderson, N.P. 01/14/2019 M54.5 Low back pain Lucas Henderson N.P. 01/14/2019 M25.552 Pain in left hip Lucas Hendesron N.P. 01/14/2019 K86.1 Other chronic pancreatitis Lucas Henderson N.P. 01/14/2019 Z90.49 Acquired absence of other specified parts of Lucas Henderson N.PYvonne digestive tract 01/14/2019 J20.9 Acute bronchitis, unspecified Lucas Henderson, N.P. 01/14/2019 J01.40 Acute pansinusitis, unspecified Lucas Henderson, N.P. 01/14/2019 H66.93 Otitis media, unspecified, bilateral Lucas Henderson, N.P. 01/14/2019 R06.02 Shortness of breath Lucas Henderson, N.P. 01/14/2019 R05 Cough Lucas Henderson, N.P. 01/14/2019 R09.81 Nasal congestion Lucas Henderson N.P. 01/14/2019 E55.9 Vitamin D deficiency, unspecified Lucas Henderson, N.P. 01/14/2019 G47.00 Insomnia, unspecified Lucas Henderson, N.P. 01/14/2019 R06.83 Snoring Lucas Henderson N.P. 01/14/2019 J02.9 Acute pharyngitis, unspecified Lucas Henderson, N.P. 01/14/2019 J18.0 Bronchopneumonia, unspecified organism Lucas Henderson N.P. 01/14/2019 L02.214 Cutaneous abscess of groin [...] sensorineural hearing Lucas Henderson N.PYvonne loss, bilateral 01/07/2019 H53.30 Unspecified disorder of binocular vision Lucas Henderson N.P. 01/07/2019 E78.2 Mixed hyperlipidemia Lucas Henderson N.P. 01/07/2019 M54.5 Low back pain Lucas Henderson N.P. 01/07/2019 M25.552 Pain in left hip Lucas Henderson N.P. 01/07/2019 K86.1 Other chronic pancreatitis Lucas Henderson N.P. 01/07/2019 Z90.49 Acquired absence of other specified parts of Lucas Henderson N.PYvonne digestive tract 01/07/2019 J20.9 Acute bronchitis, unspecified Lucas Henderson, N.P. 01/07/2019 J01.40 Acute pansinusitis, unspecified Lucas Henderson N.P. 01/07/2019 H66.93 Otitis media, unspecified, bilateral Lucas Henderson N.P. 01/07/2019 R06.02 Shortness of breath Lucas Henderson N.P. 01/07/2019 R05 Cough Lucas Henderson N.P. 01/07/2019 R09.81 Nasal congestion Lucas Henderson N.P. 01/07/2019 E55.9 Vitamin D deficiency, unspecified Lucas Henderson, N.P. 01/07/2019 G47.00 Insomnia, unspecified Lucas Henderson N.P. 01/07/2019 R06.83 Snoring Lucas Henderson N.P. 01/07/2019 J02.9 Acute pharyngitis, unspecified Lucas Henderson N.P. 01/07/2019 J18.0 Bronchopneumonia, unspecified organism Lucas Henderson N.P. Plan of Treatment No Information Available Functional Status Description No Information Available Mental Status Description No Information Available Referrals Refer to Reason for Referral Status Appt Date Asa Nye MD Closed 02/16/2019 [address] [place] [address] [facility] [phone]
[2019-07-10 12:44] VITALS: BP 110/74
[2019-07-10] MEDS ORDERED: Lidocaine 1% MPF* 2 ML VIAL INJ ONE (13:06)
[2019-07-10] MEDS ORDERED: Tetan/Diph/Pertus SYR(Tdap)* 0.5 ML SYR(BOOSTRIX) use SYR IM ONE (13:35)
--- NOTE | 2019-07-10 13:54 | UC ---
Laceration HPI - HPI Summary HPI Summary: pt presents with c/o laceration to posterior left index finger at MIP joint that occurred ~ 1 hours prior to arrival by metal cover to his watch. Pt is unsure of last tetanus. - History Of Current Complaint Chief Complaint: [place] Stated Complaint: LEFT INDEX FINGER LACERATION Time Seen by Provider: 07/10/19 13:00 Hx Obtained From: Patient Laceration Location: Finger - left index Mechanism Of Injury: Sharp Trauma Onset/Duration: Sudden Onset Severity: Mild Pain Intensity: 7 Aggravating Factors: Position, Movement Related History: Dominant Hand Right - Allergies/Home Medications Allergies/Adverse Reactions: Allergies Allergy/AdvReac Type Severity Reaction Status Date / Time No Known Allergies Allergy Verified 07/10/19 12:44 Home Medications: Home Medications Atorvastatin* [Lipitor 10 MG*] 1 tab PO DAILY 07/10/19 [History Confirmed ] Budesonide/Formote 80/4.5(NF) [Symbicort 80/4.5 (NF)] 1 puff INH DAILY 07/10/19 [History Confirmed 07/10/19] DULoxetine DR CAP* [Cymbalta CAP*] 1 tab PO BID 07/10/19 [History Confirmed ] Glimepiride 1 tab PO DAILY 07/10/19 [History Confirmed 07/10/19] Montelukast Sodium TAB* [Singulair 10 MG TAB*] 1 tab PO DAILY 07/10/19 [History Confirmed 07/10/19] Pioglitazone HCl 1 tab PO DAILY 07/10/19 [History Confirmed 07/10/19] PMH/Surg Hx/FS Hx/Imm Hx Previously Healthy: Yes Endocrine History: Diabetes Cardiovascular History: Cardiac Disease, Hypertension - Surgical History Surgical History: Yes Surgery Procedure, Year, and Place: LT MENISCUS TEAR / REPLACEMENT 2004 [facility], [place] Nerve SURGERY 2013 [place]. L hip replacement 05/2016. cholycystectomy 2017 - Family History Known Family History: Positive: Cardiac Disease - Social History Occupation: Employed Full-time Lives: With Family Alcohol Use: Occasionally Substance Use Type: None Smoking Status (MU): Heavy Every Day Tobacco Smoker Type: Cigarettes Amount Used/How Often: 1/2 PK DAILY Have You Smoked in the Last Year: Yes - Immunization History Vaccination Up to Date: No Review of Systems All Other Systems Reviewed And Are Negative: Yes Constitutional: Positive: Negative Skin: Positive: Other - laceration to left index finger Eyes: Positive: Negative ENT: Positive: Negative Respiratory: Positive: Negative Cardiovascular: Positive: Negative Gastrointestinal: Positive: Negative Genitourinary: Positive: Negative Motor: Positive: Negative Neurovascular: Positive: Negative Musculoskeletal: Positive: Negative, Myalgia - at laceration site Neurological: Positive: Negative Psychological: Positive: Negative Is Patient Immunocompromised?: No Physical Exam Triage Information Reviewed: Yes Appearance: Well-Appearing Vital Signs: Initial Vital Signs Temp 98.4 F 07/10/19 12:37 Pulse 91 07/10/19 12:37 Resp 16 07/10/19 12:37 BP 110/74 07/10/19 12:37 Pulse Ox 99 07/10/19 12:37 Vital Signs Reviewed: Yes Eye Exam: Normal ENT Exam: Normal Dental Exam: Normal Neck exam: Normal Respiratory: Positive: No respiratory distress Musculoskeletal Exam: Normal Musculoskeletal: Positive: Strength Intact, ROM Intact Neurological Exam: Normal Neurological: Positive: Other: - left lower extremity weakness secondrary to past surgical history Psychological Exam: Normal Skin Exam: Other - laceration left index finger MIP joint Laceration Repair - Laceration Repair 2 Description: Linear Laceration Size After Repair: Length (cm) - 1, Width (mm) - 2, Depth (mm) - 3 Modified For Repair: No Type Injection: Local Anesthesia Used: 1.0% Lido Cleansing Completed Via Routine Prep: Yes Irrigation With Pressure Irrigation Device: Yes Closure Material: SteriStrips Closure Method: Single Layer Suture Of: Skin Suture Type: Prolene - 3 sutures of simple interupted placed with 5-0 prolene Laceration Course/Dx - Differential Dx - Laceration/Wound Differental Diagnoses: Laceration, Tendon Laceration - Diagnosis Provider Diagnosis: Laceration of left index finger Discharge ED - Sign-Out/Discharge Documenting (check all that apply): Patient Departure All imaging exams completed and their final reports reviewed: No Studies - Discharge Plan Condition: Stable Disposition: HOME Patient Education Materials: Care For Your Stitches (DC), Laceration (ED), Tdap and Td Vaccines for Adults (ED), Finger Laceration (ED) Referrals: Lucas Rodriguez MD [Primary Care Provider] - If Needed Additional Instructions: Please return to your PCP or here for suture removal of three sutures in your left index finger in 12-14 days. Please monitor for any signs or symptoms of infection that include but is not limited to increased redness, fever, chills, purulent discharge or worsening tenderness. - Billing Disposition and Condition Condition: STABLE Disposition: Home - Attestation Statements Provider Attestation: Per institutional requirements, I have reviewed the chart, however, I was not consulted specifically or made aware of this patient by the midlevel provider. I did not personally evaluate, interact with , or disposition this patient.
== END 2019-07-10 13:53 | disposition home or self-care (01) ==
LOC: UCCORT 12:08
DX: S61.211A Laceration without foreign body of left index finger without damage to nail, initial encounter (principal); E11.9 Type 2 diabetes mellitus without complications; I10 Essential (primary) hypertension; Z79.84 Long term (current) use of oral hypoglycemic drugs; F17.210 Nicotine dependence, cigarettes, uncomplicated
CPT/HCPCS: 12031; 90715; 96372; 99212; G0463